=== PATIENT | male | born 2005 ===

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

== ENCOUNTER 2025-01-04 04:16 | Emergency (ER) | payer MEDICAID ==
[2025-01-04 04:35] LABS: BASOPHILS ABSOLUTE AUTO 0.04 K/uL (0.00-0.30); BASOPHILS PERCENT AUTO 0.4 % (0.0-1.0); EOSINOPHILS ABSOLUTE AUTO 0.08 K/uL (0.00-0.70); EOSINOPHILS PERCENT AUTO 0.8 % (0.0-5.0); IMMATURE GRAN ABSOLUTE AUTO 0.02 K/uL (0.00-0.05); IMMATURE GRAN PERCENT AUTO 0.2 % (0.0-0.4); LYMPHOCYTES ABSOLUTE AUTO 2.28 K/uL (2.00-8.80); LYMPHOCYTES PERCENT AUTO 22.9 % (50.0-65.0); MEAN PLATELET VOLUME 10.9 fL (9.4-12.4); MONOCYTES ABSOLUTE AUTO 0.94 K/uL (0.10-1.40); MONOCYTES PERCENT AUTO 9.5 % (2.0-10.0); NEUTROPHILS ABSOLUTE AUTO 6.58 K/uL (1.50-8.50); NEUTROPHILS PERCENT AUTO 66.2 % (35.0-45.0); NRBC ABSOLUTE 0.00 K/uL (0.00-0.03); NRBC PERCENT 0.0 /100WBC (0.0-0.2); PLATELET COUNT,PLT 254 K/uL (150-400); RED BLOOD CELL COUNT 6.35 M/uL (4.52-5.90); WHITE BLOOD CELL COUNT,WBC 9.94 K/uL (4.5-13.5)
[2025-01-04] MEDS: Ondansetron 4 MG/2 ML SDV IVPUSH STA (04:41)
[2025-01-04 04:57] LABS: A/G RATIO 1.3 (0.9-1.6); ALANINE AMINOTRANSFERASE,ALT 37.0 IU/L (14-63); ASPARTATE AMNIOTRANSFERASE,AST 22.0 IU/L (15-37); BILIRUBIN TOTAL 0.8 mg/dL (0.2-1.0); BLOOD UREA NITROGEN,BUN 20.0 mg/dL (7.0-18.0); CARBON DIOXIDE,CO2 27.6 mmol/L (21.0-32.0); CHLORIDE,CL 103.0 mmol/L (98-107); CREATININE 1.2 mg/dL (0.8-1.3); EST CRCL DRUG DOSING (CG) 105.45 mL/min; GLUCOSE RANDOM 98.0 mg/dL (74-106); POTASSIUM,K 3.7 mmol/L (3.5-5.1); PROTEIN TOTAL,TP 8.1 g/dL (6.4-8.2); SODIUM,NA 142.0 mmol/L (136-148)
[2025-01-04 04:58] LABS: ESTIMATED GFR 89.0 mL/min (>60)
[2025-01-04 05:04] LABS: APPEARANCE,URINE CLEAR; GLUCOSE,URINE NEGATIVE (NEGATIVE); OCCULT BLOOD,URINE NEGATIVE (NEGATIVE)
[2025-01-04 05:14] LABS: AMPHETAMINES SCREEN, URINE NEGATIVE (CUTOFF=500); BUPRENORPHINE SCREEN,URINE NEGATIVE (CUTOFF=10); METHADONE SCREEN, URINE NEGATIVE (CUTOFF=200); METHAMPHETAMINES SCREEN, URINE NEGATIVE (CUTOFF=500); OXYCODONE SCREEN,URINE NEGATIVE (CUT0FF=100); PCP SCREEN,URINE NEGATIVE (CUTOFF=25); THC SCREEN,URINE 20 NG/ML NEGATIVE (CUTOFF=50)
[2025-01-04 05:16] LABS: EPITHELIAL CELLS,URINE NOT SEEN (NONE-FEW)
== END 2025-01-04 05:37 | disposition home or self-care (01) ==
LOC: MW.ED 04:16
DX: R11.2 Nausea with vomiting, unspecified (principal); T38.3X5A Adverse effect of insulin and oral hypoglycemic [antidiabetic] drugs, initial encounter; E86.0 Dehydration; R10.9 Unspecified abdominal pain; R53.1 Weakness; R68.83 Chills (without fever)
CPT/HCPCS: 36415; 80053; 80305; 81001; 82550; 83690; 83735; 85025; 93005; 96361; 96374; 99284; J2405; J7030; 93010

== ENCOUNTER 2025-01-05 04:57 | Emergency (ER) | payer MEDICAID ==
[2025-01-05 05:19] LABS: BASOPHILS ABSOLUTE AUTO 0.05 K/uL (0.00-0.30); BASOPHILS PERCENT AUTO 0.5 % (0.0-1.0); EOSINOPHILS ABSOLUTE AUTO 0.10 K/uL (0.00-0.70); EOSINOPHILS PERCENT AUTO 0.9 % (0.0-5.0); IMMATURE GRAN ABSOLUTE AUTO 0.02 K/uL (0.00-0.05); IMMATURE GRAN PERCENT AUTO 0.2 % (0.0-0.4); LYMPHOCYTES ABSOLUTE AUTO 1.64 K/uL (2.00-8.80); LYMPHOCYTES PERCENT AUTO 15.2 % (50.0-65.0); MEAN PLATELET VOLUME 10.6 fL (9.4-12.4); MONOCYTES ABSOLUTE AUTO 0.90 K/uL (0.10-1.40); MONOCYTES PERCENT AUTO 8.4 % (2.0-10.0); NEUTROPHILS ABSOLUTE AUTO 8.05 K/uL (1.50-8.50); NEUTROPHILS PERCENT AUTO 74.8 % (35.0-45.0); NRBC ABSOLUTE 0.00 K/uL (0.00-0.03); NRBC PERCENT 0.0 /100WBC (0.0-0.2); PLATELET COUNT,PLT 220 K/uL (150-400); RED BLOOD CELL COUNT 6.11 M/uL (4.52-5.90); WHITE BLOOD CELL COUNT,WBC 10.76 K/uL (4.5-13.5)
[2025-01-05] MEDS: droPERidol 2.5 MG/ML SDV IVPUSH ONE (05:23)
[2025-01-05] MEDS: Iopamidol 755 Mg/ML 100 ML Bottle IVPUSH ONE (05:35)
[2025-01-05 05:36] LABS: A/G RATIO 1.3 (0.9-1.6); ALANINE AMINOTRANSFERASE,ALT 28.0 IU/L (14-63); ASPARTATE AMNIOTRANSFERASE,AST 16.0 IU/L (15-37); BILIRUBIN TOTAL 0.7 mg/dL (0.2-1.0); BLOOD UREA NITROGEN,BUN 20.0 mg/dL (7.0-18.0); CARBON DIOXIDE,CO2 27.0 mmol/L (21.0-32.0); CHLORIDE,CL 104.0 mmol/L (98-107); CREATININE 1.2 mg/dL (0.8-1.3); EST CRCL DRUG DOSING (CG) 105.45 mL/min; ESTIMATED GFR 89.0 mL/min (>60); GLUCOSE RANDOM 96.0 mg/dL (74-106); POTASSIUM,K 3.7 mmol/L (3.5-5.1); PROTEIN TOTAL,TP 7.5 g/dL (6.4-8.2); SODIUM,NA 143.0 mmol/L (136-148)
== END 2025-01-05 08:46 | disposition home or self-care (01) ==
LOC: MW.ED 04:57
DX: R11.2 Nausea with vomiting, unspecified (principal); T38.3X5A Adverse effect of insulin and oral hypoglycemic [antidiabetic] drugs, initial encounter; I88.0 Nonspecific mesenteric lymphadenitis; Z79.899 Other long term (current) drug therapy
CPT/HCPCS: 36415; 74177; 80053; 83690; 85025; 96361; 96374; 99284; J1790; J7030; Q9967; 99282